=== PATIENT | female | born 1970 | race Caucasian/White ===

== ENCOUNTER → 2019-03-12 | Outpatient (CLI) | payer BC ==
--- NOTE | 2019-03-13 08:44 | RADIOLOGY REPORT (SQ) ---
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 TECHNIQUE: Multiplanar multisequence imaging of the facial and neck soft tissues performed without a nd with contrast. All images stored on PACS. CONTRAST TYPE AND DOSE: 15 mL Dotarem. RENAL FUNCTION: Not indicated. ACR Type II contrast agent associated with few, if any, unconfounded cases of NSF LIMITATIONS: None. FINDINGS: A contrast-enhancing low flow vascular malformation is present along the left temporal fos sa. This is diffusely infiltrative in the masseter and pterygoid muscles, with ill-defined margins a nd contrast enhancement extending into the left cheek soft tissue subcutaneous fat. Calcified 6 mm a nd 4 mm phleboliths are present along the superficial aspect of this low-flow vascular malformation o n axial image 15 and sagittal image 19. Drainage is likely through the facial vein. There is no sig nificant local mass effect, and no impingement on the nasopharyngeal airway. Overall, this measures about 8 cm craniocaudad by 4 cm transverse by 5 cm AP. Adjacent bony mandible is grossly intact. No extension through the left lateral maxillary sinus wall or left orbital wall. No intraorbital or intracranial extension is identified. However a tail of e nhancement does extend into the left parapharyngeal space without mass effect or impingement on the a irway. These findings are best shown on axial series 12, images 3-21, coronal T1 postcontrast images 6 through 19, and sagittal images 14 through 22. SKULL BASE: Intact. MAJOR SALIVARY GLANDS: No solid or cystic masses. No inflammatory changes. LYMPHADENOPATHY: No adenopathy. MUCOSAL MASSES OR ASYMMETRY: No mucosal masses or asymmetry. LARYNX/CORDS: No abnormal findings. VASCULAR STRUCTURES: The major vessels are patent. Low-flow vascular malformation left temporal sharon a as above LUNG APICES: Clear. BONES: Intact. Minimal posterior disc bulging at C5-6 THYROID: 1.6 cm complex nodule right lobe thyroid for which dedicated thyroid ultrasound is recommend ed. PARANASAL SINUSES: Clear. OTHER: No other significant finding. 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 TECHNICAL DOCUMENTATION: JOB ID: [id number] [employer]- All Rights Reserved Reading location - IP/workstation name: [email or web address]
== END ==
LOC: RAD 11:22
PROVIDERS: ATTEND Radiology Diagnostic Radiology
DX: Q27.8 Other specified congenital malformations of peripheral vascular system (principal); E04.1 Nontoxic single thyroid nodule
CPT/HCPCS: 70543; A9576